=== PATIENT | female | born 1950 | race Caucasian/White ===

== ENCOUNTER 2022-01-04 17:27 | Emergency (ER) | payer OTHER, MEDICAID, SELFPAY ==
[2022-01-04] VITALS (10 sets, daily range): BP systolic 116–162; BP diastolic 67–77; PULSE 65–89; RESP 16–33; TEMP 36.7; O2SAT 94–97
--- NOTE | 2022-01-04 17:39 | DI.RAD.S_ITS ---
PROCEDURE: XR CHEST 1V INDICATIONS: suspected sepsis TECHNIQUE: One view of the chest was acquired. COMPARISON: None. FINDINGS: Surgical changes and devices: Anterior cervical fixation hardware is noted. Lungs and pleura: Linear density in the left mid lung zone, compatible with scar/atelectasis. No consolidation, pleural effusions or pneumothorax. Mediastinum: Mediastinal contours appear normal. Heart size is normal. Bones and chest wall: Bilateral rib fracture deformities. Overlying soft tissues appear unremarkable. IMPRESSION: No acute cardiopulmonary abnormality. Dictated by: Omid Casillas M.D. on 01/04/2022 at 18:33 Approved by: Omid Casillas M.D. on 01/04/2022 at 18:34
[2022-01-04 18:05] LABS: Appearance Urine UA CLOUDY; Bilirubin Urine UA NEGATIVE (NEGATIVE); Color Urine UA YELLOW; Glucose Urine UA NEGATIVE (Negative); Ketones Urine UA NEGATIVE (NEGATIVE); Leukocyte Esterase Urine UA 3+ (NEGATIVE); Nitrite Urine UA POSITIVE (Negative); Occult Blood Urine UA 1+ (Negative); Protein Urine UA 2+ (Negative); Urobilinogen Urine UA 0.2 E.U./dL (0.2)
[2022-01-04 18:13] LABS: Bacteria Urine Few (2-10); Culture Indicated Urine Cult Not Indicated; RBC Urine 1-5/HPF (0-5/HPF); Squamous Epithelial Cell Urine 5-10 /HPF (0-5/HPF); WBC Urine 10-30/HPF (0-5/HPF)
[2022-01-04] MEDS: SODIUM CHLORIDE 0.9% 1,000 ML 1000 ML IV (18:21)
[2022-01-04 18:32] LABS: Add Manual Diff / Slide Review NO; Basophils Absolute Auto 100 /uL (0-100); Basophils Percent Auto 0.8 % (0-2); Eosinophils Absolute Auto 200 /uL (0-450); Eosinophils Percent Auto 1.4 % (2-4); Hematocrit 35.4 % (36-46); Hemoglobin 11.7 g/dL (12.0-16.0); Lymphocytes Absolute Auto 2200 /uL (1100-4500); Lymphocytes Percent Auto 17.7 % (25-40); Mean Corpuscular HGB Conc 33.1 % (30-36); Mean Corpuscular Hemoglobin 29.3 PG (26-34); Mean Corpuscular Volume 88.4 fL (80-100); Monocytes Absolute Auto 800 /uL (0-900); Monocytes Percent Auto 6.5 % (3-14); Neutrophils Absolute Auto 9100 /uL (1500-7000); Neutrophils Percent Auto 73.6 % (50-75); Platelet Count 283 X10^3/uL (150-400); Red Blood Cell Count 4.01 X10^6/uL (4.0-5.2); Red Cell Distribution Width 14.4 % (11.6-14.8); White Blood Cell Count 12.4 X10^3/uL (4.5-11.0)
--- NOTE | 2022-01-04 18:45 | PC.NURSE ---
Pt also c/o a UTI. Pt is incontinent, strong ammonia smell noted.
[2022-01-04 18:48] LABS: Lactate (Lactic Acid) 0.7 mmol/L (0.7-2.1)
[2022-01-04 18:49] LABS: Alanine Aminotransferase 13 IU/L (<35); Albumin Globulin Ratio 1.2 (1.0-2.8); Alkaline Phosphatase 85 U/L (38-126); Aspartate Aminotransferase 23 IU/L (14-36); BUN Creatinine Ratio 16.7 (6-22); Bilirubin Total 0.4 mg/dL (0.2-1.3); Blood Urea Nitrogen 17 mg/dL (7-17); Carbon Dioxide 31 mmol/L (22-32); Chloride 98 mmol/L (98-107); Estimated Glomerular Filt Rate 53.6 mL/min (>60); Globulin 3.4 g/dL (1.7-4.1); Glucose 189 mg/dL (80-110); HEMOLYSIS 15 (0-50); Lipase 13 U/L (23-300); Potassium 4.6 mmol/L (3.4-5.1); Sodium 133 mmol/L (137-145); Total Protein 7.4 g/dL (6.3-8.2)
[2022-01-04 18:51] LABS: pH Urine UA 7.5 (4.5-8.0)
[2022-01-04 18:51] LABS: COVID19 -Nasal RAPID Negative (Negative)
--- NOTE | 2022-01-04 18:52 | ED.URI ---
HPI - URI/Sore Throat General Chief Complaint: Shortness of Breath/Dyspnea Stated Complaint: states pneumonia, difficulty breathing Time Seen by Provider: 01/04/22 18:19 Source: patient Mode of arrival: Ambulatory History of Present Illness HPI Narrative: Patient here with her son. Complains 2 months of productive yellow/green cough. Patient does have history asthma and emphysema/COPD. Does not have any breathing treatments inhaler or nebulizer. She does continue to smoke. She was seen at [facility] couple of months ago. Discharged without any breathing treatments. She has been staying at the [facility] recently and now here in and a [place] with the [employer] in a motel with her son. States continues to have daily cough and shortness of breath with chest tightness. Again, this is not new. Currently no chest pain Related Data Previous Rx's Medication Instructions Recorded albuterol sulfate 2.5 mg (3 mL) INHALATION Q4-6H PRN 01/04/22 #75 ml cephalexin 500 mg capsule 500 mg PO TID #15 cap 01/04/22 Allergies Allergy/AdvReac Type Severity Reaction Status Date / Time Sulfa (Sulfonamide Allergy Severe Anaphylaxis Verified 01/04/22 19:01 Antibiotics) Review of Systems Review of Systems Narrative: GENERAL: Denies chills, fatigue, malaise, fever, sweats. HEENT: Denies sinus pain, ear pain, sore throat RESPIRATORY: Positive for dyspnea, cough CARDIOVASCULAR: Denies chest pain, palpitations, positive for chest tightness GASTROINTESTINAL: Denies nausea, vomiting, abdominal pain : Denies dysuria, frequency, hematuria MUSCULOSKELETAL: denies muscle or bony pain SKIN: Denies rash, skin lesions NEUROLOGIC: Denies weakness, numbness ROS Unobtainable: All systems reviewed & are unremarkable except as noted in HPI and below Patient History Social History Smoking Status: Current every day smoker Smoking Status: Current every day smoker Exam Narrative Exam Narrative: GENERAL: in no distress, not toxic not dyspneic HEAD: Normocephalic. EYES: Pupils equal round No scleral icterus. ENT: Mucous membranes moist. NECK: Trachea midline. CARDIOVASCULAR: Regular rate and rhythm without murmurs RESPIRATORY: Clear to auscultation. Breath sounds equal bilaterally. However, diminished lung sounds at the bases. No wheezes, rales, or rhonchi. Speaking full sentences GASTROINTESTINAL: Abdomen soft, non-tender EXTREMITIES: No gross deformities. BACK: No flank tenderness. NEURO: AOx4. SKIN: Warm and dry PSYCH: Not anxious, is cooperative Initial Vital Signs Initial Vital Signs: Vital Signs Temperature 98.1 F 01/04/22 17:36 Pulse Rate 89 01/04/22 17:36 Respiratory Rate 20 01/04/22 17:36 Blood Pressure 116/74 01/04/22 17:36 Pulse Oximetry 96 01/04/22 17:36 Course Course Course Narrative: No new issues during course of stay Orders Ordered: ED Orders 01/04/22 17:39 XR chest 1V Stat EKG-12 Lead Stat RT Consult Eval and Treat NOW 01/04/22 17:45 Complete Blood Count AUTO DIFF Stat Comprehensive Metabolic Panel Stat Lactate (Lactic Acid) Stat Lipase Stat Procalcitonin Stat 01/04/22 17:50 Urinalysis and Microscopic Stat 01/04/22 17:56 Consult to SEWER PIPE LAYER HELPER - Telecommunication Systems Designer Stat 01/04/22 18:10 COVID19 -Nasal swab/Pre-Proc Stat 01/04/22 18:20 Blood Culture Stat Discontinued Medications Albuterol (Albuterol Hfa Mdi 60 Puff/8 Gm Inhaler) 2 puff INH NOW ONE Stop: 01/04/22 20:24 Last Admin: 01/04/22 20:30 Dose: Not Given Documented by: TOSHIA Albuterol (Albuterol Hfa Prepack) 1 box MISC SEEINSTR ONE Stop: 01/04/22 20:27 Last Admin: 01/04/22 20:30 Dose: 1 box Documented by: TOSHIA Albuterol/Ipratropium (Albuterol/Ipratropium 3 Ml Ampul) 3 ml INH NOW ONE Stop: 01/04/22 18:57 Last Admin: 01/04/22 19:13 Dose: 3 ml Documented by: KENRICK Cephalexin HCl (Cephalexin 250 Mg Capsule) 500 mg PO NOW ONE Stop: 01/04/22 20:26 Last Admin: 01/04/22 20:30 Dose: 500 mg Documented by: TOSHIA Sodium Chloride (Normal Saline 0.9%) 1,000 mls @ 1,000 mls/hr IV BOLUS ONE Stop: 01/04/22 18:38 Last Infusion: 01/04/22 20:09 Dose: 0 mls/hr Documented by: Admin: 01/04/22 18:21 Dose: 1,000 mls/hr Documented by: HUGO Methylprednisolone (Methylprednisolone 125 Mg/2 Ml Vial) 125 mg IV NOW ONE Stop: 01/04/22 18:57 Last Admin: 01/04/22 19:00 Dose: 125 mg Documented by: HUGO Reevaluation(s) Reevaluation #1: Reviewed results with patient and son. Patient had complete relief with breathing treatment here. Social work has seen patient as well. Return precautions reviewed with her. Encouraged her to stop smoking. Prescriptions provided. They are happy with treatment plan. They desire discharge home Time: 20:29 Vital Signs Vital signs: Vital Signs - 8 hr 01/04/22 17:36 01/04/22 17:39 01/04/22 17:52 Temperature 98.1 F Pulse Rate 89 68 80 Respiratory Rate 20 22 Blood Pressure 116/74 Pulse Oximetry 96 97 01/04/22 18:00 01/04/22 18:05 01/04/22 18:30 Temperature Pulse Rate 71 69 72 Respiratory Rate 23 23 Blood Pressure 123/67 131/72 Pulse Oximetry 97 96 96 01/04/22 19:00 01/04/22 19:30 01/04/22 20:00 Temperature Pulse Rate 68 67 65 Respiratory Rate 21 23 16 Blood Pressure 146/70 H 153/72 H 162/77 H Pulse Oximetry 96 94 96 01/04/22 20:30 Temperature Pulse Rate 70 Respiratory Rate 33 H Blood Pressure Pulse Oximetry 95 MDM - URI/Sore Throat Differential Diagnosis Differential diagnosis: Likely upper respiratory infection, bronchitis and other (COPD/asthma exacerbation) Lab Data Result diagrams: 01/04/22 17:45 01/04/22 17:45 Labs: Lab Results 01/04/22 01/04/22 01/04/22 Range/Units 17:45 17:45 17:45 WBC 12.4 H (4.5-11.0) X10^3/uL RBC 4.01 (4.0-5.2) X10^6/uL Hgb 11.7 L (12.0-16.0) g/dL Hct 35.4 L (36-46) % MCV 88.4 (80-100) fL MCH 29.3 (26-34) PG MCHC 33.1 (30-36) % RDW 14.4 (11.6-14.8) % Plt Count 283 (150-400) X10^3/uL Neut % (Auto) 73.6 (50-75) % Lymph % (Auto) 17.7 L (25-40) % Caroline % (Auto) 6.5 (3-14) % Eos % (Auto) 1.4 L (2-4) % Baso % (Auto) 0.8 (0-2) % Neut # (Auto) 9100 H (7075-5710) /uL Lymph # (Auto) 2200 (7859-0448) /uL Caroline # (Auto) 800 (0-900) /uL Eos # (Auto) 200 (0-450) /uL Baso # (Auto) 100 (0-100) /uL Sodium 133 L (137-145) mmol/L Potassium 4.6 (3.4-5.1) mmol/L Chloride 98 (98-107) mmol/L Carbon Dioxide 31 (22-32) mmol/L BUN 17 (7-17) mg/dL Creatinine 1.02 (0.52-1.04) mg/dL Estimated GFR 53.6 L (>60) mL/min BUN/Creatinine Ratio 16.7 (6-22) Glucose 189 H (80-110) mg/dL Lactate 0.7 (0.7-2.1) mmol/L Calcium 9.0 (8.4-10.2) mg/dL Total Bilirubin 0.4 (0.2-1.3) mg/dL AST 23 (14-36) IU/L ALT 13 (<35) IU/L Alkaline Phosphatase 85 (38-126) U/L Total Protein 7.4 (6.3-8.2) g/dL Albumin 4.0 (3.5-5.0) g/dL Globulin 3.4 (1.7-4.1) g/dL Albumin/Globulin Ratio 1.2 (1.0-2.8) Lipase 13 L (23-300) U/L Procalcitonin < 0.03 (<0.5) ng/mL Urine Color Urine Appearance Urine pH (4.5-8.0) Ur Specific [place] (1.000-1.035) Urine Protein (Negative) Urine Glucose (UA) (Negative) g/dL Urine Ketones (NEGATIVE) Urine Occult Blood (Negative) Urine Nitrate (Negative) Urine Bilirubin (NEGATIVE) Urine Urobilinogen (0.2) E.U./dL Ur Leukocyte Esterase (NEGATIVE) Urine RBC (0-5/HPF) Urine WBC (0-5/HPF) Ur Squamous Epith Cells (0-5/HPF) Urine Bacteria (None) Ur Culture Indicated? SARS-CoV-2 (PCR) (Negative) 01/04/22 01/04/22 Range/Units 17:50 18:10 WBC (4.5-11.0) X10^3/uL RBC (4.0-5.2) X10^6/uL Hgb (12.0-16.0) g/dL Hct (36-46) % MCV (80-100) fL MCH (26-34) PG MCHC (30-36) % RDW (11.6-14.8) % Plt Count (150-400) X10^3/uL Neut % (Auto) (50-75) % Lymph % (Auto) (25-40) % Caroline % (Auto) (3-14) % Eos % (Auto) (2-4) % Baso % (Auto) (0-2) % Neut # (Auto) (9123-9625) /uL Lymph # (Auto) (6112-0541) /uL Caroline # (Auto) (0-900) /uL Eos # (Auto) (0-450) /uL Baso # (Auto) (0-100) /uL Sodium (137-145) mmol/L Potassium (3.4-5.1) mmol/L Chloride (98-107) mmol/L Carbon Dioxide (22-32) mmol/L BUN (7-17) mg/dL Creatinine (0.52-1.04) mg/dL Estimated GFR (>60) mL/min BUN/Creatinine Ratio (6-22) Glucose (80-110) mg/dL Lactate (0.7-2.1) mmol/L Calcium (8.4-10.2) mg/dL Total Bilirubin (0.2-1.3) mg/dL AST (14-36) IU/L ALT (<35) IU/L Alkaline Phosphatase (38-126) U/L Total Protein (6.3-8.2) g/dL Albumin (3.5-5.0) g/dL Globulin (1.7-4.1) g/dL Albumin/Globulin Ratio (1.0-2.8) Lipase (23-300) U/L Procalcitonin (<0.5) ng/mL Urine Color Yellow Urine Appearance Cloudy Urine pH 7.5 (4.5-8.0) Ur Specific [place] 1.010 (1.000-1.035) Urine Protein 2+ H (Negative) Urine Glucose (UA) Negative (Negative) g/dL Urine Ketones Negative (NEGATIVE) Urine Occult Blood 1+ H (Negative) Urine Nitrate Positive H (Negative) Urine Bilirubin Negative (NEGATIVE) Urine Urobilinogen 0.2 (0.2) E.U./dL Ur Leukocyte Esterase 3+ H (NEGATIVE) Urine RBC 1-5/hpf (0-5/HPF) Urine WBC 10-30/hpf H (0-5/HPF) Ur Squamous Epith Cells 5-10 /hpf H (0-5/HPF) Urine Bacteria Few (2-10) H (None) Ur Culture Indicated? Cult not indicated SARS-CoV-2 (PCR) Negative (Negative) Imaging Data Chest x-ray: Radiologist's Impression: [address] [address] XRay Report Signed Patient: Kylee Fontana MR#: [id number] : 1950 Acct:[id number] Age/Sex: 71 / F Date of Service: 01/04/22 Loc: ED Accession Number: [id number] ?? Procedure: XR chest 1V Ordering Provider: Tish Galvan D.O. PROCEDURE:? XR CHEST 1V ? INDICATIONS:? suspected sepsis ? TECHNIQUE:? One view of the chest was acquired.? ? COMPARISON:? None. ? FINDINGS:? ? Surgical changes and devices:? Anterior cervical fixation hardware is noted.? ? Lungs and pleura:? Linear density in the left mid lung zone, compatible with scar/atelectasis.? No consolidation, pleural effusions or pneumothorax.? ? Mediastinum:? Mediastinal contours appear normal.? Heart size is normal.? ? Bones and chest wall:? Bilateral rib fracture deformities.? Overlying soft tissues appear unremarkable.? ? IMPRESSION:? No acute cardiopulmonary abnormality. ? ? Dictated by: Omid Casillas M.D. on 01/04/2022 at 18:33 ? ? Approved by: Omid Casillas M.D. on 01/04/2022 at 18:34 ? ECG Data Interpretation: Normal sinus rhythm rate [address] elevation or depression MDM Narrative Medical decision making narrative: Appropriate for discharge home. Exam and laboratory studies and imaging are reassuring. The does not sound like coronary event. With history of COPD asthma and productive cough and chest tightness likely ongoing asthmatic bronchitis. Patient does not have home breathing treatments. Had complete relief with breathing treatment here. Return precautions reviewed with her. Primary care referral given as well. Discharge Plan Departure Patient Disposition: Home Clinical Impression: Asthma with exacerbation, Asthmatic bronchitis, Acute UTI Instructions: DI for Asthma -- Adult, DI for Chronic Bronchitis, DI for Urinary Tract Infection (UTI) Activity Restrictions/Additional Instructions: Please stop smoking. This will help out your asthma and COPD. See family doctor in a week for recheck. Call provided primary care referral phone number to establish family doctor. Call [phone]. Continue home breathing treatments. Antibiotics have been provided for urinary tract infection. Return if worse if any questions or concerns Prescriptions: New albuterol sulfate 2.5 mg /3 mL (0.083 %) solution for nebulization 2.5 mg inhalation Q4-6H PRN (Reason: shortness of breath or wheezing) Qty: 75 0RF cephalexin 500 mg capsule 500 mg PO TID Qty: 15 0RF
[2022-01-04] MEDS: methylPREDNISolone 125 MG/2 ML VIAL IV (19:00)
[2022-01-04 19:05] LABS: Procalcitonin < 0.03 ng/mL (<0.5)
[2022-01-04] MEDS: ALBUTEROL/IPRATROPIUM 3 ML AMPUL INH (19:13)
--- NOTE | 2022-01-04 20:00 | CM.SWNOTE ---
ED Social work note: PRODUCT EVANGELIST met with patient and pt's son at bedside. Patient reported she has insurance [employer] and Medicaid so she can get prescribed medications through pharmacy. Patient reported she and her son are living in local motel provided through [employer] at this time. Patient reported [facility] hasn't been able to assist with any medical supplies. Patient reported her main need after a nebulizer was briefs and bed pads due to her incontinence. Son reported their homelessness started after pt had to have surgery and was hospitalized. Patient is being discharged with briefs and bed pads from hospital stock. Attempt to assist pt with getting these supplies via pharmacy/prescription did not succeed as [facility] indicated these are only over the counter. Patient provided with [employer] and [facility] information for local resources for housing and medical DME. Patient provided with [facility] contact information as she reported she is eligible for caregiver hours and she wants her son to be paid for the hours he takes care of her. Patient did not know her top case assembler name at [facility]; she was provided with main contact number for office. Patient and pt's son also encouraged to contact [facility] and request a primary care nurse practitioner be assigned to assist with getting medical needs met. Patient reported they have a primary care nurse practitioner. PRODUCT EVANGELIST suggested contacting the primary care nurse practitioner to discuss ways they can remove barriers to necessary medical supplies for patient so she can attempt to avoid ED visits and hospitalizations in the future because of lack of necessary medical equipment (nebulizer and incontinence supplies). Pt is being provided with prescription for breathing treatment and antibiotics for UTI by attending. No other needs identified at this time. Jesús Borja [facility]
[2022-01-04] MEDS: ALBUTEROL HFA PREPACK 1 BOX MISC (20:30)
[2022-01-04] MEDS: cephALEXin 250 MG CAPSULE 500 MG PO (20:30)
== END 2022-01-04 20:39 | disposition home or self-care (01) ==
PROVIDERS: Emergency Medicine; Emergency Provider Emergency Medicine
DX: J45.901 Unspecified asthma with (acute) exacerbation (principal); N39.0 Urinary tract infection, site not specified; F17.200 Nicotine dependence, unspecified, uncomplicated; Z88.2 Allergy status to sulfonamides; R07.9 Chest pain, unspecified; Z20.822 Contact with and (suspected) exposure to COVID-19
CPT/HCPCS: 36415; 71045; 80053; 81001; 83605; 83690; 84145; 85025; 87040; 87635; 93005; 93010; 94640; 96361; 96374; 99284; C9803; A9270; J2930

== ENCOUNTER 2022-01-14 15:34 | Emergency (ER) | payer OTHER, MEDICAID, SELFPAY ==
[2022-01-14 15:42] VITALS: BP 100/56; PULSE 68; RESP 16; TEMP 36.9; O2SAT 97; BMI 22.6
--- NOTE | 2022-01-14 16:33 | ED_ITS ---
HPI - Back Pain/Injury <EPHRAIM Durbin - Last Filed: 01/14/22 16:36> General Chief Complaint: Back Pain/Injury Stated Complaint: pain at amputation site, back pain Time Seen by Provider: 01/14/22 16:19 History of Present Illness HPI Narrative: 71-year-old female presents to the emergency department for her chronic back pain requesting a medication refill of her oxycodone and tramadol as she states her appointment with her prescriber isn't until January 24, she will run out of her medications before then. She states that she has not used more than in she is supposed to but she was not able to get an appoint with her provider until the 23 of February. Patient states that she has been using lidocaine patches, heat, and doing the things that she can help reduce her pain at home. Patient denies any new trauma, denies any weakness, denies any sensation changes. Related Data Previous Rx's Medication Instructions Recorded albuterol sulfate 2.5 mg (3 mL) INHALATION Q4-6H PRN 01/04/22 #75 ml cephalexin 500 mg capsule 500 mg PO TID #15 cap 01/04/22 diclofenac sodium 1 % topical gel 4 g TOPICAL QID #100 g 01/14/22 lidocaine 5 % topical patch 1 patch TOPICAL DAILY PRN #15 ea 01/14/22 methocarbamol 500 mg tablet 500 mg PO TID PRN #10 tab 01/14/22 oxycodone 5 mg tablet 5 mg PO BID PRN #10 tab 01/14/22 oxycodone-acetaminophen 5 mg-325 1 tab PO Q8H PRN #10 tab 01/14/22 mg tablet (Percocet) tramadol 50 mg tablet 50 mg PO BID PRN #10 tab 01/14/22 Allergies Allergy/AdvReac Type Severity Reaction Status Date / Time Sulfa (Sulfonamide Allergy Severe Anaphylaxis Verified 01/04/22 19:01 Antibiotics) Review of Systems <EPHRAIM Durbin - Last Filed: 01/14/22 16:36> Review of Systems Narrative: General: denies fever, chills Head/Neck: denies headache, neck pain Eyes: denies visual changes, eye pain Cardio: denies chest pain, palpitations Respiratory: denies shortness of breath, cough GI: denies abdominal pain, nausea, vomiting, or diarrhea : denies dysuria, hematuria MSK: denies joint pain, muscle weakness, endorses low back pain Skin: denies rash, itching Neuro: denies numbness, tingling Patient History <EPHRAIM Durbin - Last Filed: 01/14/22 16:36> Social History Smoking Status: Current every day smoker Smoking Status: Current every day smoker Exam <EPHRAIM Durbin - Last Filed: 01/14/22 16:36> Narrative Exam Narrative: Independently reviewed vitals signs and nursing notes. General: Awake, alert, nontoxic, no cardiorespiratory distress Head/Neck: Atraumatic, neck full range of motion Eyes: EOMI, conjunctiva normal Nose: nares patent, no rhinorrhea Mouth/Throat: moist mucus membranes Cardio: Regular rate and rhythm, no peripheral edema Respiratory: respirations unlabored without wheezing, stridor, or rales. No retractions. GI: Abdomen soft, nontender MSK: Moves all extremities, neurovascularly intact, low back pain with movements, no tenderness over lumbar spine, no open wounds, no weakness, ambulatory with steady gait Skin: Normal capillary refill, no rash Neuro: Normal speech and cognition, normal gait Initial Vital Signs Initial Vital Signs: Vital Signs Temperature 98.4 F 01/14/22 15:42 Pulse Rate 68 01/14/22 15:42 Respiratory Rate 16 01/14/22 15:42 Blood Pressure 100/56 L 01/14/22 15:42 Pulse Oximetry 97 01/14/22 15:42 Course <EPHRAIM Durbin - Last Filed: 01/14/22 16:36> Orders Ordered: Discontinued Medications Oxycodone HCl (Oxycodone Ir 5 Mg Tablet) 10 mg PO NOW ONE Stop: 01/14/22 16:26 Last Admin: 01/14/22 16:46 Dose: 10 mg Documented by: HUGO Tramadol HCl (Tramadol 50 Mg Tablet) 50 mg PO NOW ONE Stop: 01/14/22 16:26 Last Admin: 01/14/22 16:42 Dose: 50 mg Documented by: AKASH Vital Signs Vital signs: Vital Signs - 8 hr 01/14/22 15:42 Temperature 98.4 F Pulse Rate 68 Respiratory Rate 16 Blood Pressure 100/56 L Pulse Oximetry 97 [facility] - Back Pain/Injury <Mony Rodríguez SEMI CONDUCTOR ASSEMBLER - Last Filed: 01/14/22 16:36> [facility] Narrative Medical decision making narrative: Female presents to the emergency department for any of medication refill of her oxycodone and tramadol for her chronic back pain. Patient states that she has been using her meds occasions as prescribed but was unable to get an appointment with her prescriber until January 24, she will be out of her medications by the. She states that she takes the same amount every day, and she has a significant amount of pain from her prior back surgeries. Patient denies any recent fever, illness, weakness, sensation changes, trauma, or any other changes. She has been using lidocaine patches at home, these are working for her okay, she denies any nausea vomiting, or incontinence. Multiple etiologies of back pain considered including; Epidural abscess, cauda equina, mass occupying lesion, lumbar fracture, intra-abdominal pathology chronic neuropathic pain and other considered. The Patient is appropriate and amenable to discharge home. Vital signs are stable on repeat examination is unremarkable. Patient has been informed of results. Patient has been given strict return to ER precautions for any new or worsening symptoms. Patient understands to follow up closely with outpatient providers as instructed. Patient understands plan and agrees to discharge home. All questions and concerns answered at this time. Discharge Plan Departure Patient Disposition: Home Clinical Impression: Chronic back pain Qualifiers: Back pain location: low back pain Back pain laterality: unspecified Sciatica presence: without sciatica Qualified Code(s): M54.50 - Low back pain, unspecified Instructions: DI for Low Back Pain, DI for Back Spasm Activity Restrictions/Additional Instructions: *You have been diagnosed with chronic low back pain. Please follow-up with your primary care provider/chronic pain prescriber on January 24 for your refills of medications. I hope that you feel better soon, please. Stay on your medications, attempt to lower your oxycodone use, use lidocaine, diclofenac gel as needed for your pain. Essentially some muscle relaxers as well, please use as you need to, please do not take too much of the these sedating medications together. Please eat food and drink water when you these medicines. *What to do: *Please continue to take your regular medications as directed. [ x] New medication prescriptions sent to your pharmacy: [[facility] ] [ ] New medication written as a paper prescription [ ] No new medications given *Please follow up with your primary care provider in 2-3 days, call for an appointment. Let them know you were seen in the Emergency Department and that we asked that you be seen for follow-up. We will electronically transmit a record of today's note if your PCP is in our system *If you do not have a primary care provider please contact [phone] to establish care with one of the [facility] primary care providers. *Return to Emergency Department if you should have any new, worsening or co ncerning symptoms, such as [fever greater than 101F, chills, worsening pain, persistent vomiting or other bothersome symptoms] Prescriptions: New oxycodone-acetaminophen [Percocet] 5-325 mg tablet 1 tab PO Q8H PRN (Reason: pain) Qty: 10 0RF tramadol 50 mg tablet 50 mg PO BID PRN (Reason: pain) Qty: 10 0RF methocarbamol 500 mg tablet 500 mg PO TID PRN (Reason: muscle spasm) Qty: 10 0RF lidocaine 5 % adhesive patch,medicated 1 patch topical DAILY PRN (Reason: pain) Qty: 15 0RF Rx Instructions: leave on most painful area for up to 12 hrs diclofenac sodium 1 % gel 4 g topical QID Qty: 100 0RF Rx Instructions: apply to single knee, ankle, foot; for foot includes sole/toes/top of foot oxycodone 5 mg tablet 5 mg PO BID PRN (Reason: pain) Qty: 10 0RF No Action albuterol sulfate 2.5 mg /3 mL (0.083 %) solution for nebulization 2.5 mg inhalation Q4-6H PRN (Reason: shortness of breath or wheezing) Qty: 75 0RF cephalexin 500 mg capsule 500 mg PO TID Qty: 15 0RF
[2022-01-14] MEDS: TRAMADOL 50 MG TABLET PO (16:42)
[2022-01-14] MEDS: OXYCODONE IR 5 MG TABLET 10 MG PO (16:46)
--- NOTE | 2022-01-14 16:49 | PC.NURSE ---
pt states that she has chronic back pain and spinal arthritis made worse after back surgery last year. states she takes tramadol and hydrocodone at home but she ran out and she is here for pain control.
== END 2022-01-14 16:50 | disposition home or self-care (01) ==
PROVIDERS: Emergency Provider Nurse Practitioner Critical Care Medicine
DX: M54.50 Low back pain, unspecified (principal); G89.29 Other chronic pain; F17.200 Nicotine dependence, unspecified, uncomplicated; Z79.891 Long term (current) use of opiate analgesic
CPT/HCPCS: 99283